=== PATIENT | female | born 1940 | race Caucasian/White ===

== ENCOUNTER 2021-11-23 13:14 | Emergency (ER) | payer MEDICARE, MEDICAID ==
[~2021-11-23] VITALS: Ht 154.9 cm; Wt 79.5 kg
[~2021-11-23 13:14] MED LIST: LEVO50TA67 PO; OMEP20CA15 PO; RALO60TA55 PO; TRAV5DRO4 OP; VALS1TAB40 PO
[2021-11-23] MEDS ORDERED: HYDROchlorothiazide 25mg tablet PO ONE (14:50)
[2021-11-23 16:12] VITALS: BP 170/102
[2021-11-23] MEDS ORDERED: HYDR25TA5 PO (16:46)
== END 2021-11-23 17:16 | disposition home or self-care (01) ==
LOC: ER 13:15
DX: R04.0 Epistaxis (principal); I10 Essential (primary) hypertension; Z79.899 Other long term (current) drug therapy
CPT/HCPCS: 99284